=== PATIENT | male | born 1990 | race Asian ===

== ENCOUNTER 2018-09-04 12:52 | Outpatient (CLI) | payer OTHER ==
--- NOTE | 2018-09-04 14:54 | RAD ---
LUMBAR SPINE THREE VIEWS: History: Low back pain. Comparison: None. FINDINGS: There are five lumbar type vertebral bodies. Lumbar spine vertebral body height is maintained. In the neutral position, no spondylolisthesis or spondylosis, no abnormal motion upon flexion or extension. IMPRESSION: No significant spondylolisthesis or spondylosis. POS: [facility]
--- NOTE | 2018-09-04 15:44 | MRI ---
MRI LUMBAR SPINE WITHOUT CONTRAST: Date: 09/04/18 HISTORY: M54.5 low back pain. COMPARISON: None. FINDINGS: The aortic contour is nonaneurysmal. No retroperitoneal adenopathy. No hydronephrosis. Paraspinal musculature is normal and symmetric. No marrow infiltrative process. Normal lumbar lordosi s. Levels are as follows: L1-2: Normal disc. No neural foraminal or spinal canal narrowing. L2-3: Normal disc. No neural foraminal or spinal canal narrowing. L3-4: Small left lateral recess and subforaminal posterior disc osteophyte complex. No significant n eural foraminal or spinal canal narrowing. L4-5: Very small broad based posterior disc osteophyte complex, central and bilateral paracentral lo cations. No neural foraminal or spinal canal narrowing. L5-S1: There is a very small central posterior disc protrusion which is a central annular fissure. N o significant neural foraminal or spinal canal narrowing. IMPRESSION: Very low grade spondylosis as described above, worse at l5-S1. POS: [facility]
== END 2018-09-04 12:53 | disposition home or self-care (01) ==
LOC: TBSIIMAG 12:52
PROVIDERS: ATTEND Neurological Surgery
DX: M54.5 Low back pain (principal); M47.817 Spondylosis without myelopathy or radiculopathy, lumbosacral region
CPT/HCPCS: 72100; 72148